=== PATIENT | female | born 1985 | race Hispanic/Latino ===

== ENCOUNTER 2021-12-01 21:14 | Observation (INO) | payer OTHER ==
[2021-12-01] MEDS ORDERED: hydrALAZINE 20 MG/ML VIAL SLOW IVP PRN (22:31)
[2021-12-01 22:45] LABS: Bilirubin Neg (Negative); Blood, Urine 25 (Negative); Clarity Clear (Clear); Glucose, Urine (Dipstick) Normal (Negative); Ketone, Urine 5 mg/dL (Negative); Leukocyte Negative (Negative); Nitrite Negative (Negative); Protein, Urine (Dipstick) Negative (Neg-Trace); Specific Gravity, Urine 1.005 (1.002-1.036); Urobilinogen Normal mg/dL (Less than 2)
[2021-12-01 22:47] LABS: Urine Culture Reflex No No
[2021-12-01 22:53] LABS: Bacteria/HPF Rare-Few HPF (None Seen); RBC/HPF 0-3 HPF (0-3); Squamous Epithelial 0-3 HPF (0-3); WBC/HPF None Seen HPF (0-3)
[2021-12-01 23:48] LABS: FFN Internal QC Analyzer PASS (PASS); FFN Internal QC Cassette PASS (PASS); Fetal Fibronectin Negative (Negative)
[2021-12-02] MEDS ORDERED: Ondansetron PF 4 MG/2 ML Vial IVP PRN (00:08)
[2021-12-02] MEDS ORDERED: Acetaminophen 500 MG TAB PO PRN (00:08)
[2021-12-02] MEDS ORDERED: HYDROcodone/Acetaminophen 5/325 mg Tablet PO PRN (00:31)
[2021-12-02] MEDS ORDERED: Promethazine HCl 25 MG/ML VIAL IM PRN (01:51)
[2021-12-02] MEDS ORDERED: diphenhydrAMINE 50 MG/ML VIAL IVP SCH (02:00)
[2021-12-02] MEDS ORDERED: Morphine 4 MG/ML VIAL ONE (02:24)
== END 2021-12-02 07:20 | disposition home or self-care (01) ==
LOC: CSHLD/OP 21:14 → CSHLD 12-02 02:52
PROVIDERS: ADMIT Obstetrics & Gynecology; ATTEND Obstetrics & Gynecology
DX: O99.891 Other specified diseases and conditions complicating pregnancy (principal); R10.13 Epigastric pain; R10.11 Right upper quadrant pain; R10.31 Right lower quadrant pain; M54.9 Dorsalgia, unspecified; O47.03 False labor before 37 completed weeks of gestation, third trimester; O24.410 Gestational diabetes mellitus in pregnancy, diet controlled; O34.219 Maternal care for unspecified type scar from previous cesarean delivery; O09.523 Supervision of elderly multigravida, third trimester; Z3A.32 32 weeks gestation of pregnancy; Z79.82 Long term (current) use of aspirin
CPT/HCPCS: 51701; 76815; 81001; 82731; 87480; 87510; 87660; 99285; J1200; J2270

== ENCOUNTER 2022-01-02 20:31 | Day surgery (SDC) | payer OTHER ==
[2022-01-02] MEDS ORDERED: hydrALAZINE 20 MG/ML VIAL SLOW IVP PRN (22:28)
[2022-01-02 22:34] VITALS: BMI 29.6
== END 2022-01-02 22:39 | disposition home or self-care (01) ==
LOC: CSHERS 20:31 → CSHLD/OP 22:27
PROVIDERS: ATTEND Emergency Medicine
DX: O26.893 Other specified pregnancy related conditions, third trimester (principal); R06.02 Shortness of breath; O99.283 Endocrine, nutritional and metabolic diseases complicating pregnancy, third trimester; E86.0 Dehydration; O99.343 Other mental disorders complicating pregnancy, third trimester; F41.9 Anxiety disorder, unspecified; Z79.82 Long term (current) use of aspirin; Z79.899 Other long term (current) drug therapy; Z3A.37 37 weeks gestation of pregnancy
CPT/HCPCS: 36416; 99283

== ENCOUNTER 2022-01-19 05:14 | Inpatient (IN) | payer MEDICAID, OTHER, SELFPAY ==
[2022-01-18 11:06] LABS: #Eosinphils 0.1 10x3/uL (0.0-0.5); #Monocytes 0.7 10x3/uL (0.0-1.1); #Neutrophils 6.9 10x3/uL (1.5-8.4); %Basophils 0.3 % (0.0-2.0); %Eosinophils 0.7 % (0.0-6.0); %Monocytes 7.9 % (0.0-10.0); %Neutrophils 75.7 % (40.0-75.0); Hemoglobin 12.6 g/dL (12.0-15.5); Mean Corpuscular HGB CONC 35.6 g/dL (32.0-36.0); Mean Corpuscular Hemoglobin 32.8 pg (27.0-33.0); Mean Corpuscular Volume 92.2 fl (81.6-98.3); Mean Platelet Volume 11.8 fl (7.4-10.4); Platelet Count 143 10x3/uL (150-450); Red Blood Cell (RBC) Count 3.84 10x6/uL (3.90-5.03); White Blood Cell (WBC) Count 9.1 10x3/uL (3.5-10.5)
[2022-01-18 11:38] LABS: Syphilis Antibody Nonreactive (Nonreactive); Syphilis Antibody Index 0.04 S/CO (<1.00 Non-Reactive)
[2022-01-18 11:43] LABS: HBSAg Index 0.23 S/CO (0-0.99); Hep B Surf Ag Non-Reactive S/CO (NonReactive)
[2022-01-18 12:08] LABS: SARS-CoV-2 NAA Rapid Test Not Detected (NotDetected)
[2022-01-19 05:56] VITALS: BMI 29.6
[2022-01-19] MEDS ORDERED: Bicitra 30 ML UDCUP PO PRN (07:02)
[2022-01-19] MEDS ORDERED: Famotidine/PF 20 mg/2ml Vial SLOW IVP PRN (07:02)
[2022-01-19] MEDS ORDERED: Ondansetron PF 4 MG/2 ML Vial IVP PRN ×3 (07:02→12:28)
[2022-01-19] MEDS ORDERED: hydrALAZINE 20 MG/ML VIAL SLOW IVP PRN ×2 (07:02→12:28)
[2022-01-19] MEDS ORDERED: Acetaminophen 500 MG TAB PO PRN (07:02)
[2022-01-19] MEDS ORDERED: Promethazine HCl 25 MG/ML VIAL IM PRN ×3 (07:02→12:28)
[2022-01-19] MEDS ORDERED: CEFAZOLIN 2 GM VIAL ONE (07:03)
[2022-01-19] MEDS ORDERED: CEFAZOLIN 2 GM in Sodium Chloride 0.9% 100 ML IVPB SCH (07:15)
[2022-01-19] MEDS ORDERED: Lactated Ringer's 1,000 ML IV SCH (07:15)
[2022-01-19] MEDS ORDERED: ePHEDrine Sulfate 50 MG/10 ML VIAL ONE (07:23)
[2022-01-19] MEDS ORDERED: Oxytocin 10 UNITS/ML VIAL ONE ×2 (07:23→08:53)
[2022-01-19] MEDS ORDERED: Morphine PF 10 MG/10 ML VIAL ONE (07:23)
[2022-01-19] MEDS ORDERED: PHENYLEPHRINE-NS 100 MCG/ML 10 ML SYRINGE ONE (07:23)
[2022-01-19] MEDS ORDERED: Ondansetron PF 4 MG/2 ML Vial ONE (07:23)
[2022-01-19] MEDS ORDERED: Phenylephrine 40 MG/NS 250 ML 250 ML ONE (07:23)
[2022-01-19] MEDS ORDERED: Ketorolac Tromethamine 30 MG/ML VIAL ONE (07:23)
[2022-01-19] MEDS ORDERED: Naloxone HCl 0.4 mg/ml Vial IV PRN (07:37)
[2022-01-19] MEDS ORDERED: Meperidine HCl/PF 25 MG/ML VIAL SLOW IVP PRN (07:37)
[2022-01-19] MEDS ORDERED: Promethazine HCl 25 MG SUPP PR PRN (07:37)
[2022-01-19] MEDS ORDERED: Ondansetron HCl/PF 4 MG/2 ML Vial IVP PRN (07:37)
[2022-01-19] MEDS ORDERED: diphenhydrAMINE 50 MG/ML VIAL IVP PRN (07:37)
[2022-01-19] MEDS ORDERED: Naloxone HCl 0.4 mg/ml Vial IVP PRN ×2 (07:37)
[2022-01-19] MEDS ORDERED: Moisturizing Cream (Eucerin) 113 GM JAR TOP PRN (07:37)
[2022-01-19] MEDS ORDERED: Fentanyl 100 MCG/2 ML VIAL SLOW IVP PRN (07:37)
[2022-01-19] MEDS ORDERED: Communication Order-Pharmacy FS SCH (07:45)
[2022-01-19] MEDS ORDERED: Fentanyl 100 MCG/2 ML VIAL ONE (08:37)
[2022-01-19] MEDS ORDERED: Simethicone Chewable 80 MG TAB PO PRN (12:28)
[2022-01-19] MEDS ORDERED: Boostrix 0.5 ML (Tdap) VIAL (>/=7 yrs of age) IM ONE (12:28)
[2022-01-19] MEDS ORDERED: Bisacodyl 10 MG SUPP PR PRN (12:28)
[2022-01-19] MEDS ORDERED: Ketorolac Tromethamine 30 MG/ML VIAL IVP SCH (15:00)
[2022-01-19] MEDS: Ketorolac Tromethamine 30 MG/ML VIAL IVP PRN (17:40)
[2022-01-19] MEDS: Lactated Ringer's 1,000 ML IV SCH (17:40)
[2022-01-19] MEDS: Ibuprofen 800 MG TAB PO SCH (17:41)
[2022-01-19] MEDS ORDERED: HYDROcodone/Acetaminophen 5/325 mg Tablet PO PRN (20:00)
[2022-01-20] MEDS: Ketorolac Tromethamine 30 MG/ML VIAL IVP PRN (00:36)
[2022-01-20] MEDS: Lactated Ringer's 1,000 ML IV SCH ×2 (04:10→06:41)
[2022-01-20] MEDS: Docusate 100 MG CAP PO SCH ×3 (04:10→20:07)
[2022-01-20] MEDS: Ibuprofen 800 MG TAB PO SCH ×3 (04:10→20:09)
[2022-01-20 05:02] LABS: Hemoglobin 9.9 g/dL (12.0-15.5); Mean Corpuscular HGB CONC 34.1 g/dL (32.0-36.0); Mean Corpuscular Hemoglobin 33.3 pg (27.0-33.0); Mean Corpuscular Volume 97.6 fl (81.6-98.3); Mean Platelet Volume 12.1 fl (7.4-10.4); Platelet Count 115 10x3/uL (150-450); RBC Distribution Width 13.8 % (11.5-14.5); Red Blood Cell (RBC) Count 2.97 10x6/uL (3.90-5.03); White Blood Cell (WBC) Count 9.1 10x3/uL (3.5-10.5)
[2022-01-20] MEDS: HYDROcodone/Acetaminophen 5/325 mg Tablet PO PRN ×4 (05:28→20:08)
[2022-01-20] MEDS: Prenatal Vitamin 1 TAB PO SCH (08:30)
[2022-01-21] MEDS: Lactated Ringer's 1,000 ML IV SCH ×3 (04:02→07:32)
[2022-01-21] MEDS: Ibuprofen 800 MG TAB PO SCH (05:04)
[2022-01-21 08:17] VITALS: BP 118/56; TEMP 98.7
[2022-01-21] MEDS: Prenatal Vitamin 1 TAB PO SCH (08:41)
[2022-01-21] MEDS: Docusate 100 MG CAP PO SCH (08:41)
== END 2022-01-21 13:40 | disposition home or self-care (01) | DRG 788 ==
LOC: CSHLD 05:14 → CSHPED 11:50
PROVIDERS: ADMIT Family Medicine; ATTEND Family Medicine
PROC: 10D00Z1 Extraction of Products of Conception, Low, Open Approach (ICD-10-PCS; principal; 2022-01-19)
DX: O34.211 Maternal care for low transverse scar from previous cesarean delivery (principal); Z20.822 Contact with and (suspected) exposure to COVID-19; Z3A.39 39 weeks gestation of pregnancy; Z37.0 Single live birth; O24.420 Gestational diabetes mellitus in childbirth, diet controlled; O87.4 Varicose veins of lower extremity in the puerperium; I83.90 Asymptomatic varicose veins of unspecified lower extremity; Z79.82 Long term (current) use of aspirin; O32.8XX0 Maternal care for other malpresentation of fetus, not applicable or unspecified
CPT/HCPCS: 36415; 51702; 85025; 85027; 86780; 86850; 86900; 86901; 87340; J0690; J1885; J2274; J2405; J2590; J3010; J3490; J7120; U0002